=== PATIENT | female | born 1975 | race African-American/Black ===

== ENCOUNTER 2018-12-22 22:10 | Emergency (ER) | payer OTHER ==
[2018-12-22 22:20] VITALS: BP 144/88; PULSE 75; TEMP 97.7; BMI 30.9
[2018-12-22] MEDS ORDERED: IBUPROFEN 600 MG TABLET (FP) PO ONE ×2 (22:57→23:03)
--- NOTE | 2018-12-22 22:59 | PDOC ---
Documentation entered by Dennise Boothe SCRIBE, acting as scribe for Shanelle Chappell MD. Shanelle Chappell MD: This documentation has been prepared by the Tl arcos Xhesika, SCRIBE, under my direction and personally reviewed by me in its entirety. I confirm that the documentation accurately reflects all work, treatment, procedures, and medical decision making performed by me. History of Present Illness - General Chief Complaint: Injury Stated Complaint: LT HIP PAIN Time Seen by Provider: 12/22/18 22:12 History Source: Patient Exam Limitations: No Limitations - History of Present Illness Initial Comments: 12/22/18 22:28 The patient is a 42 year old female, with no significant PMH of who presents to the emergency department with L hip pain. Patient states she was at work, slipped on the stairs and hit her lower back. Pt notes her pain is worsened when bending. Patient denies hitting her head or LOC. PAST MEDICAL HISTORY: no significant history PAST SURGICAL HISTORY: no significant history FAMILY HISTORY: no pertinent history SOCIAL HISTORY: Pt lives with family and is employed. MEDICATIONS: reviewed ALLERGIES: As per nursing notes 12/22/18 22:58 Assessment and plan: This is a 42-year-old female who comes in status post fall and hitting her lower back and buttocks area on some steps. Patient had an x- ray that was reviewed and read by me as negative for any acute pathology. Patient given Motrin and discharged to follow-up with her primary care Past History - Past Medical History Allergies/Adverse Reactions: Allergies Allergy/AdvReac Type Severity Reaction Status Date / Time No Known Allergies Allergy Unverified 12/22/18 22:11 Home Medications: Ambulatory Orders Fexofenadine HCl [Fawn Allergy] 180 mg PO DAILY 12/22/18 COPD: No - Psycho Social/Smoking Cessation Hx Smoking History: Never smoked Review of Systems - Review of Systems Able to Perform ROS?: Yes Comments:: 12/22/18 22:29 General: No fevers or chills, no weakness, no weight loss HEENT: No change in vision. No sore throat,. No ear pain CardioVascular: No chest pain or shortness of breath Respiratory:No cough, or wheezing. Gastrointestinal: no nausea, vomiting, diarrhea or constipation, No rectal bleeding Genitourinary: No dysuria, hematuria, or frequency Musculoskeletal: No joint or muscle swelling. + L hip pain. Neurologic: No headache, vertigo, dizziness or loss of consciousness Psychiatric: nor depression Skin: No rashes or easy bruising Endocrine: no increased thirst or abnormal weight change Allergic: no skin or latex allergy All other systems reviewed and normal *Physical Exam - Vital Signs Last Vital Signs Temp Pulse Resp BP Pulse Ox 97.7 F 75 16 144/88 96 12/22/18 22:14 12/22/18 22:14 12/22/18 22:14 12/22/18 22:14 12/22/18 22:14 - Physical Exam Comments: 12/22/18 22:29 GENERAL: The patient is awake, alert, and fully oriented, in no acute distress. HEAD: Normal with no signs of trauma. EYES: Pupils equal, round and reactive to light, extraocular movements intact, sclera anicteric, conjunctiva clear. EXTREMITIES: + mild TTP of lower lumbar and lower sacral area. No TTP of coccyx. NEUROLOGICAL: Normal speech, normal gait. PSYCH: Normal mood, normal affect. SKIN: Warm, Dry, normal turgor, no rashes or lesions noted. ED Treatment Course - RADIOLOGY Radiology Studies Ordered: Category Date Time Status SPINE-LUMBAR SACRAL [RAD] Stat Radiology 12/22/18 22:26 Taken Discharge - Discharge Information Problems reviewed: Yes Clinical Impression/Diagnosis: Lumbar strain Qualifiers: Encounter type: initial encounter Qualified Code(s): S39.012A - Strain of muscle, fascia and tendon of lower back, initial encounter Fall Qualifiers: Encounter type: initial encounter Qualified Code(s): W19.XXXA - Unspecified fall, initial encounter Condition: Stable Disposition: HOME - Follow up/Referral - Patient Discharge Instructions Additional Instructions: For the pain take Tylenol or Motrin for the next 2-3 days. It is normal to feel worse the second and third day then the day you fell. After that you should start to get better. Return to the emergency department immediately with ANY new, persistent or worsening symptoms. Continue any medications as previously prescribed by your physician. You should follow up with your primary doctor as soon as possible regarding today's emergency department visit. . Please make sure your doctor reviews the results of your emergency evaluation. Thank you for coming to the Emergency Department today for your care. It was a pleasure to see you today. Please note that your evaluation is INCOMPLETE until you follow-up with your doctor. - Post Discharge Activity
== END 2018-12-22 23:06 | disposition home or self-care (01) ==
LOC: FER 22:10
DX: S39.012A Strain of muscle, fascia and tendon of lower back, initial encounter (principal); W18.39XA Other fall on same level, initial encounter; Y93.89 Activity, other specified; Y92.89 Other specified places as the place of occurrence of the external cause
CPT/HCPCS: 72100-TC-FY; 99281-25